=== PATIENT | male | born 1985 | race Caucasian/White ===

== ENCOUNTER 2018-01-13 20:53 | Observation (INO) | payer OTHER ==
[2018-01-13 21:05] LABS: Glucose,Whole Blood 114 mg/dL (75-99)
[2018-01-13] MEDS ORDERED: MORPHINE SULFATE 4 MG/ML SYRINGE IV STA ×2 (21:08→23:19)
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
[2018-01-13 21:20] LABS: Basophils % (A) 0 %; Eosinophils # (A) 0.1 k/uL (0-0.7); Eosinophils % (A) 1 %; HCT 44.4 % (39.0-53.0); HGB 14.3 gm/dL (13.0-17.5); Lymphocytes # (A) 2.4 k/uL (1.0-4.8); Lymphocytes % (A) 30 %; MCH 30.3 pg (25.0-35.0); MCHC 32.2 g/dL (31.0-37.0); Mean Platelet Volume 6.6; Monocytes # (A) 0.4 k/uL (0-1.0); Monocytes % (A) 5 %; Neutrophils # (A) 4.8 k/uL (1.3-7.7); Neutrophils % (A) 59 %; Platelet Count 236 k/uL (150-450); RBC 4.72 m/uL (4.30-5.90); RDW 12.7 % (11.5-15.5); WBC 8.1 k/uL (3.8-10.6)
[2018-01-13 21:23] LABS: Creatine Kinase 408 U/L (55-170)
[2018-01-13] MEDS ORDERED: ETOMIDATE 2 MG/ML 10 ML VIAL IVP STA (21:30)
[2018-01-13 21:34] LABS: INR 1.1 (<1.2); Prothrombin Time 10.8 sec (9.0-12.0)
[2018-01-13 21:35] LABS: Troponin I <0.012 ng/mL (0.000-0.034)
[2018-01-13 21:35] LABS: ALT 36 U/L (21-72); AST 38 U/L (17-59); Albumin 3.8 g/dL (3.5-5.0); Alcohol <10 mg/dL; Alkaline Phosphatase 20 U/L (38-126); Amylase 59 U/L (30-110); Anion Gap 6 mmol/L; Blood Urea Nitrogen 23 mg/dL (9-20); Calcium 8.1 mg/dL (8.4-10.2); Carbon Dioxide 24 mmol/L (22-30); Chloride 109 mmol/L (98-107); Glucose 95 mg/dL (74-99); Lipase 96 U/L (23-300); Potassium 3.4 mmol/L (3.5-5.1); Sodium 139 mmol/L (137-145); Total Bilirubin 0.6 mg/dL (0.2-1.3); Total Protein 6.3 g/dL (6.3-8.2)
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
--- NOTE | 2018-01-13 21:50 | XR ---
EXAMINATION TYPE: XR pelvis AP view DATE OF EXAM: 01/13/2018 COMPARISON: NONE HISTORY: Pain. TECHNIQUE: Single view FINDINGS: The pelvic ring is intact. There is a lateral superior dislocation of the right femoral hea d. I see no femoral fracture. Sacroiliac joints appear intact. IMPRESSION: Dislocated right hip joint. No fracture seen.
--- NOTE | 2018-01-13 21:51 | XR ---
EXAMINATION TYPE: XR femur RT DATE OF EXAM: 01/13/2018 COMPARISON: NONE HISTORY: Leg pain TECHNIQUE: 4 views FINDINGS: There is anterior superior dislocation of the right femoral head. I see no fracture. The kn ee joint appears intact. IMPRESSION: Anterior lateral dislocation of the femoral head.
--- NOTE | 2018-01-13 22:04 | XR ---
EXAMINATION TYPE: XR pelvis AP view DATE OF EXAM: 01/13/2018 COMPARISON: Today HISTORY: Post reduction TECHNIQUE: Single view FINDINGS: There is anatomic reduction of the dislocated right hip joint. I see no fracture. Sacroilia c joints appear normal. IMPRESSION: Anatomic reduction.
[2018-01-13 22:12] LABS: Creatine Kinase MB 4.2 ng/mL (0.0-2.4)
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
[2018-01-13] MEDS ORDERED: NALOXONE 0.4 MG/ML 1 ML VIAL IV PRN (23:23)
[2018-01-13] MEDS ORDERED: MORPHINE SULFATE 4 MG/ML SYRINGE IV PRN (23:23)
[2018-01-13] MEDS ORDERED: ONDANSETRON 4 MG/2 ML VIAL IVP PRN (23:23)
[2018-01-14] MEDS: HYDROcodone/APAP 5-325MG 1 EACH TAB PO PRN ×2 (02:11→09:13)
[2018-01-14] MEDS: SODIUM CHLORIDE 0.9% 1,000 ML IV SCH (03:30)
[2018-01-14] MEDS: diphenhydrAMINE 50 MG/ML 1 ML VIAL IVP PRN ×2 (06:36→22:56)
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
[2018-01-14 08:55] LABS: Basophils % (A) 0 %; Eosinophils # (A) 0.1 k/uL (0-0.7); Eosinophils % (A) 1 %; HCT 39.7 % (39.0-53.0); HGB 13.1 gm/dL (13.0-17.5); Lymphocytes # (A) 1.6 k/uL (1.0-4.8); Lymphocytes % (A) 17 %; MCHC 32.9 g/dL (31.0-37.0); MCV 94.3 fL (80.0-100.0); Mean Platelet Volume 6.4; Monocytes # (A) 0.8 k/uL (0-1.0); Monocytes % (A) 8 %; Neutrophils # (A) 6.3 k/uL (1.3-7.7); Neutrophils % (A) 71 %; Platelet Count 206 k/uL (150-450); RBC 4.21 m/uL (4.30-5.90); RDW 12.9 % (11.5-15.5); WBC 8.9 k/uL (3.8-10.6)
[2018-01-14 09:10] LABS: ALT 48 U/L (21-72); AST 89 U/L (17-59); Alkaline Phosphatase 22 U/L (38-126); Anion Gap 8 mmol/L; Blood Urea Nitrogen 23 mg/dL (9-20); Calcium 8.6 mg/dL (8.4-10.2); Carbon Dioxide 25 mmol/L (22-30); Chloride 105 mmol/L (98-107); Glucose 91 mg/dL (74-99); Sodium 138 mmol/L (137-145); Total Bilirubin 1.2 mg/dL (0.2-1.3); Total Protein 6.6 g/dL (6.3-8.2)
[2018-01-14] MEDS: FAMOTIDINE 20 MG TAB PO SCH ×2 (09:13→21:12)
[2018-01-14] MEDS ORDERED: HYDROmorphone 1 MG/ML 1 ML SYRINGE IVP PRN (09:26)
[2018-01-14] MEDS ORDERED: diphenhydrAMINE 50 MG/ML 1 ML VIAL IVP STA (09:29)
[2018-01-14] MEDS: KETOROLAC 30 MG/ML 1 ML VIAL IVP SCH ×3 (09:40→22:44)
[2018-01-14 11:24] LABS: Appearance,Urine Clear (Clear); Bilirubin,Urine Negative (Negative); Blood,Urine Small (Negative); Color,Urine Yellow; Glucose,Urine (UA) Negative (Negative); Ketones,Urine Negative (Negative); Leukocyte Esterase,Urine Negative (Negative); Mucus,Urine Rare /hpf; Nitrite,Urine Negative (Negative); PH, Urine 5.5 (5.0-8.0); Protein,Urine Negative (Negative); RBC,Urine 2 /hpf (0-5); Specific Gravity,Urine 1.036 (1.001-1.035); Urobilinogen,Urine <2.0 mg/dL (<2.0); WBC,Urine 1 /hpf (0-5)
[2018-01-14 11:33] LABS: Amphetamine Screen,Urine Not Detected (NotDetected); Barbiturate Screen,Urine Not Detected (NotDetected); Benzodiazepines Screen,Urine Not Detected (NotDetected); Cocaine Screen,Urine Not Detected (NotDetected); Methadone Screen, Urine Not Detected (NotDetected); Opiate Screen,Urine Detected (NotDetected); Oxycodone Screen, Urine Not Detected (NotDetected); Phencyclidine Screen,Urine Not Detected (NotDetected); Tricyclic Antidepressant,Urine Not Detected (NotDetected); Urn Cannabinoid Scrn Detected (NotDetected)
[2018-01-14] MEDS ORDERED: KETOROLAC 30 MG/ML 1 ML VIAL IVP SCH (12:00)
[2018-01-14] MEDS ORDERED: HYDROCORTISONE SUCCINATE 100 MG/2 ML VIAL IV PRN (15:06)
[2018-01-14] MEDS: HEPARIN SODIUM,PORCINE 5,000 UNIT/ML 1 ML VIAL SQ SCH (16:07)
[2018-01-15] MEDS: HEPARIN SODIUM,PORCINE 5,000 UNIT/ML 1 ML VIAL SQ SCH ×2 (00:23→08:09)
[2018-01-15] MEDS: SODIUM CHLORIDE 0.9% 1,000 ML IV SCH (00:24)
[2018-01-15] MEDS: KETOROLAC 30 MG/ML 1 ML VIAL IVP SCH ×2 (03:55→09:45)
[2018-01-15 07:13] VITALS: BP 113/58; PULSE 49; RESP 18; TEMP 97.1
[2018-01-15] MEDS: FAMOTIDINE 20 MG TAB PO SCH (08:09)
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
[2018-01-15 11:33] LABS: Basophils % (A) 0 %; Eosinophils # (A) 0.1 k/uL (0-0.7); Eosinophils % (A) 1 %; HCT 38.7 % (39.0-53.0); HGB 12.7 gm/dL (13.0-17.5); Lymphocytes # (A) 1.3 k/uL (1.0-4.8); Lymphocytes % (A) 15 %; MCH 30.5 pg (25.0-35.0); MCHC 32.8 g/dL (31.0-37.0); MCV 93.1 fL (80.0-100.0); Monocytes # (A) 0.6 k/uL (0-1.0); Monocytes % (A) 8 %; Neutrophils # (A) 6.3 k/uL (1.3-7.7); Neutrophils % (A) 74 %; Platelet Count 205 k/uL (150-450); RBC 4.15 m/uL (4.30-5.90); RDW 12.4 % (11.5-15.5); WBC 8.5 k/uL (3.8-10.6)
[2018-01-15 11:43] LABS: ALT 49 U/L (21-72); AST 88 U/L (17-59); Albumin 4.1 g/dL (3.5-5.0); Alkaline Phosphatase 25 U/L (38-126); Anion Gap 7 mmol/L; Blood Urea Nitrogen 24 mg/dL (9-20); Calcium 8.9 mg/dL (8.4-10.2); Carbon Dioxide 25 mmol/L (22-30); Chloride 105 mmol/L (98-107); Glucose 88 mg/dL (74-99); Potassium 4.2 mmol/L (3.5-5.1); Sodium 137 mmol/L (137-145); Total Bilirubin 1.4 mg/dL (0.2-1.3); Total Protein 6.8 g/dL (6.3-8.2)
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
== END 2018-01-15 13:59 | disposition home or self-care (01) ==
LOC: EC 20:53 → 4MS4W 23:11
PROVIDERS: ADMIT Surgery; ATTEND Surgery
DX: S73.004A Unspecified dislocation of right hip, initial encounter (principal); M53.3 Sacrococcygeal disorders, not elsewhere classified; S81.011A Laceration without foreign body, right knee, initial encounter; S80.211A Abrasion, right knee, initial encounter; F12.90 Cannabis use, unspecified, uncomplicated; V29.9XXA Motorcycle rider (driver) (passenger) injured in unspecified traffic accident, initial encounter
CPT/HCPCS: 27250 ×2; 99152 ×2; 99285 ×2; 96374 ×2; 36415; 93005; 86900; 86901; 80053 ×3; 82150; 82550; 82553; 83605 ×2; 83690; 84484; 85025 ×3; 85610; 85730; 86850; 81001; 80306; 80320; 72170; 73552; 71045; 74177; G0378 ×3; L1830; J2270 ×2; J1200; J1644 ×2; J1720; J1885 ×2; J1170; Q9967

== ENCOUNTER → 2018-06-14 | Outpatient (CLI) | payer OTHER ==
--- NOTE | 2018-06-15 04:31 | CT ---
EXAMINATION TYPE: CT foot RT wo con DATE OF EXAM: 06/14/2018 COMPARISON: None HISTORY: 33-year-old male right foot pain, injury to right foot 1 year ago. Posttraumatic OA right mi dfoot. TECHNIQUE: Contiguous axial scanning of the right foot without IV contrast. Coronal and sagittal ela nstructions performed. 3-D reconstructions generated on a dedicated independent workstation. CT DLP: 238.8 mGycm Automated exposure control for dose reduction was used. FINDINGS: Normal variant os trigonum. There is a prominent dorsal talar head spur which seems to conform to the course of a couple of the extensor digitorum longus tendons. There is posttraumatic osteoarthrosis along the third through fifth TMT joints. Suspected old impacted fracture of the distal lateral cuboid at the level of the fifth TMT joint with associated degenerative change. There is deformity and attenuated appearance to the base of the fourth proximal metatarsal with some adjacent chronic ununited fracture fragments measuring 1.9 x 1.3 cm along the more medial plantar asp ect interposed at the third-fourth intermetatarsal joint. Associated dorsal subluxation at the fourth TMT joint. Posttraumatic bony deformity and osteoarthrosis at the third-fourth intermetatarsal joint and also al kim the lateral aspect of the third TMT joint. Bipartite fibular sesamoid. Somewhat sclerotic appearance to the tibial sesamoid may reflect sesamoid itis and can be correlated clinically. Bony irregularity involving the third metatarsal head and neck also suggests old healed fracture defo rmity here. Mild degenerative change at the first MTP joint. No acute fracture seen. IMPRESSION: 1. POSTTRAUMATIC MIDFOOT OSTEOARTHROSIS IS CONFIRMED INVOLVING THE FOURTH AND FIFTH TMT JOINTS, THE T HIRD TMT JOINT TO A LESSER EXTENT, AND THE THIRD-FOURTH AND FOURTH-FIFTH INTERMETATARSAL JOINTS. 2. THIS APPEARS TO BE SECONDARY TO AN IMPACTED, HEALED FRACTURE DEFORMITY OF THE DISTAL LATERAL CUBOI D AND IMPACTED FRACTURE OF THE FOURTH METATARSAL BASE WITH MILD DORSAL SUBLUXATION AND CHRONIC UNUNIT ED FRACTURE FRAGMENT MEASURING 1.9 X 1.3 CM ALONG ITS MEDIAL PLANTAR ASPECT. 3. HEALED FRACTURE DEFORMITY OF THE THIRD METATARSAL HEAD AND NECK. POSSIBLE TIBIAL SESAMOIDITIS.
== END | disposition home or self-care (01) ==
LOC: RADCTMAIN 15:51
PROVIDERS: ATTEND Podiatrist Foot & Ankle Surgery
DX: M19.171 Post-traumatic osteoarthritis, right ankle and foot (principal); Z87.81 Personal history of (healed) traumatic fracture

== ENCOUNTER 2018-07-24 11:41 | Emergency (ER) | payer OTHER ==
[2018-07-24 12:32] VITALS: RESP 18
--- NOTE | 2018-07-24 13:30 | XR ---
EXAMINATION TYPE: XR elbow complete RT DATE OF EXAM: 07/24/2018 CLINICAL HISTORY: Pain after injury a few weeks ago. TECHNIQUE: Frontal, lateral and oblique images of the right elbow are obtained. COMPARISON: None FINDINGS: There is no acute fracture/dislocation evident in the right elbow. No abnormal fat pad si gns are seen. Tiny spur from olecranon the distal triceps tendon attachment is noted. The overlying s oft tissue appears unremarkable. IMPRESSION: There is no acute fracture or dislocation in the right elbow.
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
--- NOTE | 2018-07-24 13:36 | XR ---
EXAMINATION TYPE: XR shoulder complete RT, XR AC joint BILAT DATE OF EXAM: 07/24/2018 CLINICAL HISTORY: Right arm pain after injury TECHNIQUE: Three views of the right shoulder are obtained. 2 views of the bilateral acromioclavicula r joints are also performed. COMPARISON: None. FINDINGS: There is no acute fracture/dislocation evident in the right shoulder. The acromioclavicul ar and glenohumeral joint spaces appear within normal limits on the right and mild right acromio clav icular arthropathy demonstrated as small marginal osteophytes. Os acromiale is incidentally noted on the right. The visualized ribs are intact and unremarkable. The acromioclavicular joints appear symmetric with and without weights without joint space widening. Mild right acromioclavicular arthropathy is seen. IMPRESSION: There is no acute fracture or dislocation in the right shoulder. Incidentally noted os a cromiale. Mild right acromioclavicular arthropathy. No radiographic evidence of acromioclavicular lig ament disassociation.
[2018-07-24] MEDS: KETOROLAC 60 MG/2 ML VIAL IM STA (13:38)
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
[2018-07-24 14:13] VITALS: BP 145/79; PULSE 60; TEMP 98
== END 2018-07-24 14:11 | disposition home or self-care (01) ==
LOC: EC 11:41
DX: S49.92XA Unspecified injury of left shoulder and upper arm, initial encounter (principal); S59.902A Unspecified injury of left elbow, initial encounter; V89.2XXA Person injured in unspecified motor-vehicle accident, traffic, initial encounter
CPT/HCPCS: 72050; 73050; 73030; 73080; 99283; 96372; J1885